=== PATIENT | female | born 1960 | race Caucasian/White ===

== ENCOUNTER → 2017-02-15 | Outpatient (CLI) | payer BC ==
[~2017-02-15] MED LIST: IBUP-1050 PO; OXYC-57 PO; PERFLUTREN LIPID MICROSPHERE (DEFINITY) IV ONE; PRLSR20 PO
--- NOTE | 2017-02-16 15:36 | DOBUTAMINE ECHO ---
*NOTICE TO RECEIVING REPUBLICAN AGENCY This information is strictly Confidential and protected under [place] law. [place] law prohibits you from making any further disclosure of this information unless further disclosure is expressly permitted by the written consent of the person to whom it pertains or is authorized by law. A general authorization for the release of medical or other information is not sufficient for this purpose. Hospital accepts no responsibility if the information is made available to any other person, INCLUDING THE PATIENT. Interpretation Summary * Name: JASON ORTIZ Study Date: 02/15/2017 10:25 AM BP: 141/79 mmHg * Patient Location: [facility] HR: 60 * : 1960 (M/d/yyyy) Gender: Female Height: 66 in * Age: 56 yrs Ethnicity: [place] Weight: 230 lb * Ordering Physician: Byron Jones * Referring Physician: Miguel Thompson * Performed By: Rosalba Wilson RCS * * Reason For Study: CP, LVH * BSA: 2.1 m2 * -- Conclusions -- * Nondiagnostic exercise stress echocardiogram, stress halted abruptly due to severely hypertensive response. * Nonischemic at 77% target heart rate. * Hypertensive BP response to exercise. * At rest, normal LV chamber size with mild concentric LVH. * Normal systolic function without regional wall motion abnormality, EF 60-65%. * No segmental left ventricular wall motion abnormalities are noted. * Grade I diastolic dysfunction. * No significant valvular pathology. Procedure Details * A contrast injection of Definity was performed to improve assessment of LV function. * Contrast was injected into an intravenous site in the left arm. * One vial of Definity ultrasound contrast was diluted in normal saline to a total volume of 10 ml. A total of '5' ml of solution was administered during imaging. * Lot # [id number] of Definity utilized for procedure. * Expiration date [id number]. * The attending nurse who injected the contrast agent was Mihaela Rubi RN. Left Ventricle * The left ventricle is normal in size. * There is mild concentric left ventricular hypertrophy. * Left ventricular systolic function is normal. * No segmental left ventricular wall motion abnormalities are noted. * Ejection Fraction = 60-65%. * Resting wall motion: Normal. Stress wall motion: Appropriate increase in Left ventricular systolic function and decrease in cavity size. No stress induced segmental wall motion abnormalities. Right Ventricle * The right ventricular cavity size is normal (basal dimension <4.2 cm in right ventricular apical 4-chamber view). * The right ventricular systolic function is normal as assessed by tricuspid annular plane systolic excursion (TAPSE) (normal >1.5 cm). Atria * The left atrial size is normal. * Right atrial size is normal. * No ASD detected; PFO is not assessed. Mitral Valve * The mitral valve is normal in structure and function. Tricuspid Valve * The tricuspid valve is normal in structure and function. Aortic Valve * The aortic valve is normal in structure and function. Pulmonic Valve * The pulmonary valve is not well seen, but the Doppler examination is normal without significant regurgitation or stenosis. Great Vessels * The aortic root is normal size. Pericardium * There is no pericardial effusion. Stress Parameters * Normal baseline electrocardiogram. * Stress ECG: No ST changes. No arrhythmias. * No arrhythmia were noted with stress. * The stress portion of this study was personally supervised by the undersigned interpreting physician. * Rest heart rate was '53' BPM. * Rest blood pressure was '141/79' * Maximum heart rate achieved was 127 bpm. * Maximum heart rate was 77 % of maximum age-predicted heart rate. * Maximum blood pressure was '228/99' * Total exercise time was '4:45' * Maximum exercise MET level achieved was '6.7' METS * Maximum treadmill speed was '2.5' miles per hour. * Maximum treadmill elevation was '12'% grade. * Exercise was terminated due to 'Exaggerated BP increase' Left Ventricular Diastolic Function * Grade I diastolic dysfunction, (abnormal relaxation pattern). MMode 2D Measurements and Calculations IVSd 1.2 cm LVIDd 3.8 cm LVIDs 2.1 cm LVPWd 1.2 cm IVS/LVPW 1.1 FS 44.1 % EDV(Teich) 61.6 ml ESV(Teich) 14.8 ml EF(Teich) 76.0 % EDV(cubed) 54.5 ml ESV(cubed) 9.5 ml EF(cubed) 82.5 % LV mass(C)d 150.6 grams LV mass(C)dI 71.0 grams/m\S\2 SV(Teich) 46.9 ml SI(Teich) 22.1 ml/m\S\2 SV(cubed) 45.0 ml SI(cubed) 21.2 ml/m\S\2 LVOT diam 2.0 cm LVOT area 3.0 cm\S\2 EDV(MOD-sp4) 88.9 ml ESV(MOD-sp4) 33.4 ml EF(MOD-sp4) 62.4 % EDV(MOD-sp2) 78.4 ml ESV(MOD-sp2) 25.4 ml EF(MOD-sp2) 67.6 % SV(MOD-sp4) 55.5 ml SI(MOD-sp4) 26.1 ml/m\S\2 SV(MOD-sp2) 52.9 ml SI(MOD-sp2) 24.9 ml/m\S\2 Doppler Measurements and Calculations MV E max talia 73.9 cm/sec MV A max talia 84.7 cm/sec MV E/A 0.87 MV dec time 0.23 sec Ao V2 max 135.9 cm/sec Ao max PG 7.4 mmHg Ao max PG (full) 1.9 mmHg BERNIE(V,A) 2.6 cm\S\2 BERNIE(V,D) 2.6 cm\S\2 LV V1 max PG 5.5 mmHg LV V1 max 117.3 cm/sec TR max talia 244.0 cm/sec
== END | disposition home or self-care (01) ==
LOC: C.CPL 09:57
PROVIDERS: ATTEND Specialist
DX: R07.9 Chest pain, unspecified (principal); I51.7 Cardiomegaly; I45.10 Unspecified right bundle-branch block

== ENCOUNTER → 2017-06-01 | Outpatient (CLI) | payer BC ==
[~2017-06-01] MED LIST changes: -PERFLUTREN LIPID MICROSPHERE (DEFINITY) IV ONE
--- NOTE | 2017-06-02 15:32 | MAMMOGRAPHY REPORT ---
BILATERAL DIGITAL SCREENING MAMMOGRAM TOMOSYNTHESIS WITH CAD: 06/01/2017 CLINICAL HISTORY: Routine screening. TECHNIQUE: Breast tomosynthesis in addition to standard 2D mammography was performed. Current study was also evaluated with a Computer Aided Detection (CAD) system. COMPARISON: Comparison is made to exams dated: 04/14/2016 mammogram, 04/08/2015 mammogram, 12/25/2012 m ammogram, 12/15/2011 mammogram, 10/14/2010 mammogram, and 10/15/2009 mammogram - [facility] enter. BREAST COMPOSITION: There are scattered areas of fibroglandular density in both breasts. FINDINGS: No suspicious masses, calcifications, or areas of architectural distortion are noted in ei ther breast. There has been no significant interval change compared to prior exams. IMPRESSION: ACR BI-RADS CATEGORY 1: NEGATIVE There is no mammographic evidence of malignancy. A 1 year screening mammogram is recommended. The pa tient will receive written notification of the results. Approximately 10% of breast cancers are not detected with mammography. A negative mammographic report should not delay biopsy if a clinically suggestive mass is present. Roxana Reinoso M.D. ah/:06/02/2017 07:42:41 Senior Producer: Vickey HART(Erik)(M), [facility] letter sent: Normal 1/2 BI-RADS Code: ACR BI-RADS Category 1: Negative
== END | disposition home or self-care (01) ==
LOC: C.MAMM 16:58
PROVIDERS: ATTEND Family Medicine
DX: Z12.31 Encounter for screening mammogram for malignant neoplasm of breast (principal)

== ENCOUNTER 2019-09-10 20:12 | Observation (INO) ==
[2019-09-10] MEDS ORDERED: ASPIRIN CHEW 324 MG PO STA (20:31)
[2019-09-10] MEDS ORDERED: NITROGLYCERIN 2% OINTMENT 30GM TUBE EXT STA (20:31)
--- NOTE | 2019-09-10 21:02 | XRay Report ---
XR chest 1V portable CLINICAL HISTORY: Chest Pain COMPARISON STUDY: Chest radiograph January 15, 2010. FINDINGS: Lung volumes are normal. Lungs are clear. There is no pneumothorax or pleural effusion. Car diac size is normal. Mediastinal contours are normal. There is no evidence for pulmonary edema. IMPRESSION: No acute cardiopulmonary findings. ACT 112: Negative or not required by law. Electronically signed by: Hermes Narayanan M.D. 09/10/2019 9:00 PM
[2019-09-10 21:22] LABS: Basophils # (auto) 0.03 K/uL (0-0.2); Basophils % (auto) 0.4 %; Eosinophils # (auto) 0.37 K/uL (0-0.5); Eosinophils % (auto) 4.4 %; Hematocrit (blood only) 40.8 % (37-47); Hemoglobin 13.6 g/dL (12.0-16.0); Immature Granulocytes # (auto) 0.02 K/uL (0.00-0.02); Immature Granulocytes % (auto) 0.2 %; Lymphocytes # (auto) 1.86 K/uL (1.2-3.4); Lymphocytes % (auto) 21.9 %; Mean Corpuscular Hemoglobin 29.5 pg (25-34); Mean Corpuscular Hgb Conc 33.3 g/dL (32-36); Mean Corpuscular Volume 88.5 fL (80-100); Mean Platelet Volume 11.7 fL (7.4-10.4); Monocytes # (auto) 0.73 K/uL (0.11-0.59); Monocytes % (auto) 8.6 %; Neutrophils # (auto) 5.49 K/uL (1.4-6.5); Neutrophils % (auto) 64.5 %; Platelet Count 214 K/uL (130-400); RDW Coefficient of Variation 13.4 % (11.5-14.5); RDW Standard Deviation 43.5 fL (36.4-46.3); Red Blood Count 4.61 M/uL (4.2-5.4)
[2019-09-10 21:37] LABS: Partial Thromboplastin Ratio 0.9; Partial Thromboplastin Time 24.5 Seconds (21.0-31.0); Prothrombin Time 9.9 Seconds (9.0-12.0)
[2019-09-10 22:16] LABS: Alanine Aminotransferase 25 U/L (12-78); Albumin Globulin Ratio 0.9 (0.9-2); Albumin Level 3.6 gm/dl (3.4-5.0); Alkaline Phosphatase 74 U/L (45-117); Aspartate Aminotransferase 18 U/L (15-37); BUN Creatinine Ratio 14.3 (10-20); Blood Urea Nitrogen 14 mg/dl (7-18); Calcium 9.4 mg/dl (8.5-10.1); Carbon Dioxide 29 mmol/L (21-32); Chloride 103 mmol/L (98-107); Creatinine Clr Calc Pharmacy 74.8 ml/min; Est GFR (African American) 72.8; Est GFR (Non-African American) 62.8; Globulin 4.1 gm/dl (2.5-4.0); Glucose 245 mg/dl (70-99); Potassium 3.2 mmol/L (3.5-5.1); Sodium 138 mmol/L (136-145); Total Protein 7.7 gm/dl (6.4-8.2); Troponin I < 0.015 ng/ml (0-0.045)
[2019-09-11] MEDS ORDERED: ONDANSETRON INJ 2 MG/ML 2 ML VIAL IV PRN (00:04)
[2019-09-11] MEDS ORDERED: NITROGLYCERIN SL 0.4 MG/TAB TAB SL PRN (00:04)
[2019-09-11] MEDS ORDERED: PANTOprazole 40 MG TAB PO PRN (00:04)
[2019-09-11] MEDS ORDERED: ALUMINUM/MAGNESIUM SUSP 30 ML UDC PO PRN (00:04)
[2019-09-11] MEDS ORDERED: ACETAMINOPHEN 325 MG TAB PO PRN (00:04)
--- NOTE | 2019-09-11 00:25 | Emergency Department Note ---
Entered by Angie Adams acting as a scribe for Darryn Kruger MD History of Present Illness General Chief complaint: Chest Pain Stated complaint: CHEST PAIN Time Seen by Provider: 09/10/19 20:25 Source: patient History of Present Illness Onset (ago): day(s) 1 Location: chest Pain Consistency: + intermittent Maximum Pain Intensity: 5 Quality: + other (heaviness) Associated symptoms: + other (felt warm); no shortness of breath The patient is a 58 year old F who presents to the Emergency Room with complaints of intermittent chest pain that started 1 day ago. The patient describes her chest pain as a heaviness. She denies that her chest pain radiates to her neck or arms. She states that her chest pain is random and is not made better or worse by anything. She notes that her chest pain started last night and returned today. She states that she felt warm this morning. She denies that she is experiencing shortness of breath. She states that she has a history of HTN and diabetes. She denies ever smoking. She notes that her mother had CHF. She denies a family history of CAD. Home Medications Home Medications Medication Instructions Recorded Confirmed Type hydrochlorothiazide 25 mg PO DAILY 09/10/19 09/10/19 History ibuprofen 400 mg PO DAILY PRN 09/10/19 09/10/19 History losartan 50 mg PO DAILY 09/10/19 09/10/19 History metformin 500 mg PO BID 09/10/19 09/10/19 History omeprazole 20 mg PO DAILY PRN 09/10/19 09/10/19 History potassium chloride 10 meq PO DAILY 09/10/19 09/10/19 History rosuvastatin 10 mg PO DAILY 09/10/19 09/10/19 History Allergies Allergy/AdvReac Type Severity Reaction Status Date / Time Sulfa (Sulfonamide Allergy Unknown BACTRIM Verified 08/22/09 02:44 Antibiotics) sulfamethoxazole Allergy Unknown Verified 08/22/09 02:44 trimethoprim Allergy Unknown Verified 08/22/09 02:44 lisinopril AdvReac Cough Unverified 09/10/19 22:02 Past Med/Surg History Medical History Diabetes HTN (hypertension) Family History Other CHF (congestive heart failure) Social History Preferred Language: Irish Communication Ability: Effective 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 and A total of 10 systems reviewed and were otherwise negative Physical Exam Vital Signs Vital Signs - 24 hr 09/10/19 20:13 09/10/19 21:14 09/10/19 21:25 Temperature 36.4 C L Temperature Source Oral Pulse Rate 74 Pulse Rate [Apical] 63 Respiratory Rate 16 18 Blood Pressure 154/80 H Blood Pressure [Left Arm] 143/63 H Blood Pressure Mean 104 Blood Pressure Mean [Left Arm] 89 Pulse Oximetry 97 98 95 Oxygen Delivery Method Room Air Room Air Room Air Sepsis Recent Fever Within 48 Hours No Sepsis New/Unexplained Change in Mental Status No Sepsis Action Taken by Nursing No Action Required Constitutional: Vital signs reviewed. Eyes: Pupils are equal round reactive to light. Conjunctiva are noninjected. ENT: Pharynx is clear without erythema or exudate. Mucous membranes are moist. Neck supple without meningeal signs. Respiratory: Clear to auscultation bilaterally. Breath sounds are equal bila terally. Cardiovascular: Regular rate and rhythm. No rubs or gallops. GI: Soft, nondistended and nontender. Bowel sounds are present. Musculoskeletal: No peripheral edema. No lower extremity tenderness. Integumentary: No cyanosis. Neurological: The patient is awake and alert. No focal deficits. Psychiatric: Normal affect. Course Course 2026: The patient was evaluated in room C5. A complete history and physical exam was performed. 2099: The patient states that his pain is improving. The nursing staff is trying to get an IV into the patient. 2226: The patient is longer experiencing chest pain. She states that she is agreeable to admission. 2232: I reviewed the patient's case with Dr. González Scanlon[facility] He will evaluate the patient for further management. Administered Medications Discontinued Medications Aspirin (Aspirin) 324 mg PO NOW STA Stop: 09/10/19 20:32 Last Admin: 09/10/19 20:53 Dose: 324 mg Documented by: [id number] Nitroglycerin (Nitro-Bid 2%) 0.5 inch EXT NOW STA Stop: 09/10/19 20:32 Last Admin: 09/10/19 20:52 Dose: 0.5 inch Documented by: [id number] Medical Decision Making Differential Diagnosis Differential diagnosis includes: unstable angina, NM, pleurisy, PNA, GERD Medical Records Attestation: I reviewed the patient's medical records. I did perform a limited focused review of portions of the patient's old chart on the electronic medical record. The patient has had no recent pertinent visits to this hospital. Home Medications Current Medication List: was personally reviewed by me Laboratory Data Attestation: I reviewed the patient's lab results. Result diagrams: 09/10/19 21:12 09/10/19 21:12 Lab Results 09/10/19 09/10/19 09/10/19 Range/Units 21:12 21:12 21:12 WBC 8.50 (4.8-10.8) K/uL RBC 4.61 (4.2-5.4) M/uL Hgb 13.6 (12.0-16.0) g/dL Hct 40.8 (37-47) % MCV 88.5 (80-100) fL MCH 29.5 (25-34) pg MCHC 33.3 (32-36) g/dL RDW Std Deviation 43.5 (36.4-46.3) fL RDW Coeff of Constantine 13.4 (11.5-14.5) % Plt Count 214 (130-400) K/uL MPV 11.7 H (7.4-10.4) fL Immature Gran % (Auto) 0.2 % Neut % (Auto) 64.5 % Lymph % (Auto) 21.9 % [place] % (Auto) 8.6 % Eos % (Auto) 4.4 % Baso % (Auto) 0.4 % Immature Gran # (Auto) 0.02 (0.00-0.02) K/uL Neut # (Auto) 5.49 (1.4-6.5) K/uL Lymph # (Auto) 1.86 (1.2-3.4) K/uL [place] # (Auto) 0.73 H (0.11-0.59) K/uL Eos # (Auto) 0.37 (0-0.5) K/uL Baso # (Auto) 0.03 (0-0.2) K/uL PT 9.9 (9.0-12.0) Seconds INR 1.0 (0.9-1.1) APTT 24.5 (21.0-31.0) Seconds PTT Ratio 0.9 Sodium 138 (136-145) mmol/L Potassium 3.2 L (3.5-5.1) mmol/L Chloride 103 (98-107) mmol/L Carbon Dioxide 29 (21-32) mmol/L Anion Gap 7.0 (3-11) BUN 14 (7-18) mg/dl Creatinine 0.99 (0.6-1.2) mg/dl Est Cr Clr Drug Dosing 74.8 ml/min Est GFR ( Amer) 72.8 Est GFR (Non-Af Amer) 62.8 BUN/Creatinine Ratio 14.3 (10-20) Glucose 245 H (70-99) mg/dl Calcium 9.4 (8.5-10.1) mg/dl Total Bilirubin 1.0 (0.2-1) mg/dl AST 18 (15-37) U/L ALT 25 (12-78) U/L Alkaline Phosphatase 74 (45-117) U/L Troponin I < 0.015 (0-0.045) ng/ml Total Protein 7.7 (6.4-8.2) gm/dl Albumin 3.6 (3.4-5.0) gm/dl Globulin 4.1 H (2.5-4.0) gm/dl Albumin/Globulin Ratio 0.9 (0.9-2) Specimen Hemolysis Imaging Data Radiologist's Impression: Radiology results as stated below per my review and the radiologist's interpretation: XR chest 1V portable CLINICAL HISTORY: Chest Pain COMPARISON STUDY: Chest radiograph January 15, 2010. FINDINGS: Lung volumes are normal. Lungs are clear. There is no pneumothorax or pleural effusion. Cardiac size is normal. Mediastinal contours are normal. There is no evidence for pulmonary edema. IMPRESSION: No acute cardiopulmonary findings. ACT 112: Negative or not required by law. Electronically signed by: Hermes Narayanan M.D. 09/10/2019 9:00 PM ECG Data Attestation: I personally reviewed and interpreted this ECG as follows: Indication: + chest pain Rate (beats per minute): 74 Rhythm: + normal sinus ECG ST segments: no ST elevation ECG Findings: + LVH; no PVCs Blood Pressure Blood Pressure Findings: Elevated blood pressure Blood Pressure Disposition: further management by hospitalist TED Narrative I did evaluate the patient as noted above. The patient is presenting with intermittent chest heaviness since yesterday. She is still having some heaviness at this time. I did treat her with aspirin and nitroglycerin paste. IV access was established. The patient was placed on a continuous monitoring specialist. Cardiac monitoring: Indication: Chest pain Rate and rhythm: Sinus rhythm with a rate in the 60s. I did order and personally review the patient's 12-lead EKG as described above. She has no signs of acute ischemia on her twelve-lead EKG. I did order and personally reviewed the images of the patient's chest x-ray as described above. Her x-ray does not demonstrate pneumonia or any acute cardiopulmonary process. I did order and review the patient's blood work as noted in the electronic medical record. She has mild hypokalemia. Otherwise electrolytes are unremarkable. CBC is unremarkable. Troponin is negative. I did reassess the patient. She is feeling better at this time and has no chest discomfort. I did discuss the test results with the patient. I did recommend hospitalization for repeat cardiac enzymes and further evaluation. I did discuss the case with hospitalist and manager of case management. Impression & Plan Left-sided chest pain, Hypokalemia Discharge Plan Visit Data *Final* Discharge Date/Time: 09/10/19 23:42 Chief Complaint: Chest Pain Stated Complaint: CHEST PAIN ED Provider: Darryn Kruger Discharge Problem: Left-sided chest pain, Hypokalemia Patient Disposition: Admitted As Inpatient Discharge Instructions Interventions: ED Discharge Assessment Last Done: 09/10/19 23:42 The scribe's documentation has been prepared under my direction and personally reviewed by me in its entirety. I confirm that the note above accurately reflects all work, treatment, procedures, and medical decision making performed by me.
--- NOTE | 2019-09-11 00:31 | History and Physical Report ---
DATE OF ADMISSION: 09/10/2019 CHIEF COMPLAINT: Chest pain. HISTORY OF PRESENT ILLNESS: This is a 58-year-old female with past medical history significant for hypertension, left ventricular hypertrophy, irritable bowel syndrome, GERD, obesity, uterine leiomyoma, complex endometrial hyperplasia, iron deficiency anemia, rheumatic fever, depression, who presents with chest pain. Patient states since yesterday she is having on and off chest pain. It comes and goes on its own, sometimes at rest. Today after coming from work, again chest pain came back in the retrosternal region radiating to the back, pressure-like feeling, moderate in severity, not associated with any nausea, vomiting, or shortness of breath or sweating or dizziness. In the ER, nitro relieved the pain. Currently, resting comfortably and hemodynamically stable. Currently, having a headache from the nitro. Denies any dizziness, no blurred vision, no earache, no runny nose, no sore throat, no difficulty swallowing. Once in a while she gets dry cough. No fever, no chills. Normal bowel and bladder movements. No hematuria or burning micturition. No black stools or blood in stools. No swelling in the legs, no rash, no easy bleeding or bruising. ALLERGIES: BACTRIM, LISINOPRIL, SULFA, ANTIBIOTICS. PAST MEDICAL HISTORY: As mentioned above. PAST SURGICAL HISTORY: Colonoscopy, hysteroscopy with biopsy and polypectomy, cholecystectomy, total abdominal hysterectomy with removal of tubes, upper endoscopy. MEDICATIONS: The patient is on lovastatin 10 mg p.o. daily, hydrochlorothiazide 25 mg p.o. daily, losartan 50 mg p.o. daily, potassium chloride 10 mEq p.o. daily, metformin 500 mg p.o. b.i.d., Prilosec 20 mg p.o. daily p.r.n. FAMILY HISTORY: Significant for mother had eye problems, [place], hypertension. Father had hypertension, CVA. SOCIAL HISTORY: . No smoking, no alcohol, no drug use. REVIEW OF SYSTEMS: As per HPI. Rest of review of systems negative. PHYSICAL EXAMINATION: GENERAL: The patient is of moderate build, not in acute distress. VITAL SIGNS: Temperature 36.4, pulse 63, respiratory rate 18, blood pressure 143/63, oxygen 95% on room air. HEENT: No pallor, no icterus. Pupils equal, round, and reactive to light. NECK: No JVD, no neck masses, no carotid bruits. CARDIOVASCULAR: S1, S2 heard, regular rate and rhythm, no murmur, no gallop. RESPIRATORY SYSTEM: Normal AP diameter. No accessory muscle use. No wheezing, no crackles. ABDOMEN: Soft, bowel sounds present, nontender. No distention. CENTRAL NERVOUS SYSTEM: Cranial nerves II-XII grossly intact. Nonfocal. EXTREMITIES: No edema, no erythema. LABORATORY DATA: WBC 8.5, hemoglobin 13.6, hematocrit 40.8, platelets 214. PT 9.9, INR 1, APTT 24.5. Sodium 138, potassium 3.2, chloride 103, bicarbonate 29, BUN 14, creatinine 0.9, serum glucose 245, calcium 9.4, total bilirubin 1, AST 18, ALT 25, alkaline phosphatase 74. Troponin I less than 0.015. IMAGING DATA: Chest x-ray, no acute cardiopulmonary findings. EKG: Normal sinus rhythm with a rate of 74. Voltage criteria for LVH, no significant change was found. ASSESSMENT AND PLAN: This is a 58-year-old female who presents with chest pain. 1. Chest pain, rule out acute coronary syndrome. Initial workup is negative, history of chest pain in the past status post stress test in 2017 which was unremarkable. Risk factor of hypertension, diabetes and hyperlipidemia and age and obesity. We will follow serial cardiac enzymes, echocardiogram, n.p.o. except meds, and consult cardiology in the a.m. for further recommendations. 2. History of hyperlipidemia. Continue statin. Follow fasting lipid profile. 3. History of hypertension. Continue losartan and hydrochlorothiazide. We will monitor the blood pressure. 4. History of diabetes. Hold metformin, placed on insulin sliding scale. Follow the blood sugars, follow the HbA1c levels. 5. Deep venous thrombosis prophylaxis, sequential compression devices. DISPOSITION: Observation in med/surg tele. Level 1 full code. Expect to discharge home and follow with her family doctor. [place]
[2019-09-11] MEDS ORDERED: GLUCOSE 10 TABS/TUBE PO PRN (00:45)
[2019-09-11] MEDS ORDERED: GLUCAGON FOR INJ 1 MG VIAL IM PRN (00:45)
[2019-09-11] MEDS ORDERED: CARBOHYDRATES FOR HYPOGLYCEMIA PO PRN (00:45)
[2019-09-11] MEDS ORDERED: GLUCOSE 40% GEL 15 GM TUBE PO PRN (00:45)
[2019-09-11] MEDS ORDERED: DEXTROSE 50% 50 ML SYRINGE IV PRN (00:45)
[2019-09-11] MEDS: INSULIN ASPART 100 UNITS/ML 3 ML PEN SC SCH ×3 (01:14→12:07)
[2019-09-11 05:38] LABS: Basophils # (auto) 0.03 K/uL (0-0.2); Basophils % (auto) 0.6 %; Eosinophils # (auto) 0.29 K/uL (0-0.5); Eosinophils % (auto) 5.4 %; Hematocrit (blood only) 37.6 % (37-47); Hemoglobin 12.2 g/dL (12.0-16.0); Immature Granulocytes # (auto) 0.01 K/uL (0.00-0.02); Immature Granulocytes % (auto) 0.2 %; Lymphocytes # (auto) 1.36 K/uL (1.2-3.4); Lymphocytes % (auto) 25.4 %; Mean Corpuscular Hemoglobin 28.6 pg (25-34); Mean Corpuscular Hgb Conc 32.4 g/dL (32-36); Mean Corpuscular Volume 88.3 fL (80-100); Mean Platelet Volume 11.7 fL (7.4-10.4); Monocytes # (auto) 0.59 K/uL (0.11-0.59); Neutrophils # (auto) 3.08 K/uL (1.4-6.5); Neutrophils % (auto) 57.4 %; Platelet Count 185 K/uL (130-400); RDW Coefficient of Variation 13.4 % (11.5-14.5); RDW Standard Deviation 42.8 fL (36.4-46.3); Red Blood Count 4.26 M/uL (4.2-5.4); White Blood Count 5.36 K/uL (4.8-10.8)
[2019-09-11 06:00] LABS: Estimated Average Glucose 192 mg/dl; Hemoglobin A1C 8.3 % (4.5-5.6)
[2019-09-11 06:18] LABS: BUN Creatinine Ratio 15.9 (10-20); Calcium 8.3 mg/dl (8.5-10.1); Creatinine Clr Calc Pharmacy 85.1 ml/min; Est GFR (African American) 85.1; Est GFR (Non-African American) 73.4; Magnesium 1.8 mg/dl (1.8-2.4); Potassium 3.3 mmol/L (3.5-5.1)
[2019-09-11] MEDS: hydroCHLOROthiazide 25 MG TAB PO SCH ×2 (07:51→07:52)
[2019-09-11] MEDS ORDERED: POTASSIUM CHLORIDE 10 MEQ TABCR PO SCH (09:00)
[2019-09-11] MEDS ORDERED: ROSUVASTATIN CALCIUM 10 MG TAB PO SCH (09:00)
[2019-09-11] MEDS ORDERED: ASPIRIN 81 MG ECTAB PO SCH (09:00)
[2019-09-11] MEDS ORDERED: LOSARTAN POTASSIUM 50 MG TAB PO SCH (09:00)
[2019-09-11] MEDS ORDERED: ATROPINE SULFATE 0.1 MG/ML 10ML SYR IV ONE (09:37)
[2019-09-11] MEDS ORDERED: METOPROLOL TARTRATE 1 MG/ML VIAL IV ONE (09:37)
[2019-09-11] MEDS ORDERED: DOBUTamine HCL 12.5 MG/ML 20 ML VIAL IV ONE (09:37)
[2019-09-11] MEDS ORDERED: PERFLUTREN LIPID MICROSPHERE (DEFINITY) IV ONE (10:26)
--- NOTE | 2019-09-11 10:39 | Cardiology Consultation ---
Date of Consultation September 11, 2019 Assessment & Plan (1) Left-sided chest pain: Musculoskeletal in nature with left fifth rib stuck in exhalation. Negative ischemic work-up including nonischemic dobutamine stress echocardiogram No further cardiac testing or intervention is necessary at this time. I did review stretching exercises with her to help return her rib to the proper position. Recommend follow-up with PCP and possible [facility] as an outpatient should her pain persist Okay to DC to home from a cardiac standpoint. Patient states that she understands the above explanation, agrees with treatment recommendations and will proceed as directed. Maintain current outpatient cardiac follow-up scheduled for February (2) HTN (hypertension): Controlled Continue current outpatient medical regimen (3) Right bundle branch block: Rate related Induced with dobutamine administration Resolved with lowering of heart rate with metoprolol Follow-up as an outpatient no further testing necessary at this time. History of Present Illness Reason for Consultation: Chest pain Requesting Physician: Dr. Scanlon Attending Physician: Kathryn Shahid MD History of Present Illness It was my pleasure to see Ms. Concepcion in consultation today September 11, 2019. She is a very pleasant 58-year-old woman who normally follows with Kary and Dr. Granados of her cardiology practice. She presented to [facility] emergency department on 09/10/2019 with complaints of chest discomfort. Patient states that she woke up in the a.m. of 223 with left-sided discomfort. She describes a dull achy sensation that radiated from her left sternal border over to her breast at approximately the fifth intercostal space. She states that it was tender to the touch and waxed and waned throughout the day. There is no worsening of the discomfort with exertion and she denied any associated shortness of breath, diaphoresis, nausea, lightheadedness, dizziness or syncope. She states that this pain was exactly similar to the pain she had in 2017 at which time she had a negative ischemic work-up. Her pain resolved after presenting to the emergency room and she did receive 1 sublingual nitroglycerin that seemed to resolve the pain. She had no recurrences overnight. Past medical history: 1. Hypertension 2. GERD 3. Diastolic dysfunction with normal LV systolic function 4. Dyslipidemia 5. Elevated BMI 6. Irritable bowel 7. Complex endometrial hyperplasia 8. History of musculoskeletal chest pain Allergies Allergy/AdvReac Type Severity Reaction Status Date / Time Sulfa (Sulfonamide Allergy Unknown BACTRIM Verified 08/22/09 02:44 Antibiotics) sulfamethoxazole Allergy Unknown Verified 08/22/09 02:44 trimethoprim Allergy Unknown Verified 08/22/09 02:44 lisinopril AdvReac Cough Unverified 09/10/19 22:02 Home Medications Home Medications Medication Instructions Recorded Confirmed Type hydrochlorothiazide 25 mg PO DAILY 09/10/19 09/10/19 History ibuprofen 400 mg PO DAILY PRN 09/10/19 09/10/19 History losartan 50 mg PO DAILY 09/10/19 09/10/19 History metformin 500 mg PO BID 09/10/19 09/10/19 History omeprazole 20 mg PO DAILY PRN 09/10/19 09/10/19 History potassium chloride 10 meq PO DAILY 09/10/19 09/10/19 History rosuvastatin 10 mg PO DAILY 09/10/19 09/10/19 History Patient History Medical History Diabetes HTN (hypertension) Family History Other CHF (congestive heart failure) Social History Preferred Language: Urdu Communication Ability: Effective Tin 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 No acute distress. HEENT: Normocephalic, atraumatic. Pupils equal, round and reactive to light and accommodation. Extraocular muscles are intact. Anicteric sclera. Moist mucous membranes. Neck: No JVD. No bruit. Cardiovascular: Regular. Positive S-4. Normal S-1 and S-2. No S-3. No murmurs or rubs. Pulmonary: Clear to auscultation B/L. No rales, rhonchi or wheezing Abdomen: Bowel sounds x 4, soft. No rebound, guarding or tenderness. No organomegaly. Extremities: No clubbing, cyanosis or edema. +2 pedal pulses bilaterally. Skin: Warm and dry. Musculoskeletal: Direct palpation of her left sternal border fifth intercostal space was able to reproduce her discomfort. Left fifth rib found to be stuck in exhalation Results & Data ([facility]) Vital Signs (Past 12 Hours) Vital Signs Temp Pulse Pulse Pulse Resp BP Pulse Ox 09/11/19 09:44 61 09/11/19 04:25 36.7 C 61 18 97/59 L 95 09/11/19 02:43 64 09/11/19 00:26 65 18 141/75 H 96 09/10/19 23:23 64 18 148/64 H 97 Laboratory Results Cardiac Enzymes 09/10/19 09/11/19 09/11/19 Range/Units 21:12 00:16 05:22 AST 18 (15-37) U/L Troponin I < 0.015 < 0.015 0.017 (0-0.045) ng/ml Coagulation 09/10/19 Range/Units 21:12 PT 9.9 (9.0-12.0) Seconds APTT 24.5 (21.0-31.0) Seconds CBC 09/10/19 09/11/19 Range/Units 21:12 05:22 WBC 8.50 5.36 (4.8-10.8) K/uL RBC 4.61 4.26 (4.2-5.4) M/uL Hgb 13.6 12.2 (12.0-16.0) g/dL Hct 40.8 37.6 (37-47) % Plt Count 214 185 (130-400) K/uL Neut # (Auto) 5.49 3.08 (1.4-6.5) K/uL Lymph # (Auto) 1.86 1.36 (1.2-3.4) K/uL [place] # (Auto) 0.73 H 0.59 (0.11-0.59) K/uL Eos # (Auto) 0.37 0.29 (0-0.5) K/uL Baso # (Auto) 0.03 0.03 (0-0.2) K/uL Comprehensive Metabolic Panel 09/10/19 09/11/19 Range/Units 21:12 05:22 Sodium 138 140 (136-145) mmol/L Potassium 3.2 L 3.3 L (3.5-5.1) mmol/L Chloride 103 108 H (98-107) mmol/L Carbon Dioxide 29 28 (21-32) mmol/L BUN 14 14 (7-18) mg/dl Creatinine 0.99 0.87 (0.6-1.2) mg/dl Glucose 245 H 263 H (70-99) mg/dl Calcium 9.4 8.3 L (8.5-10.1) mg/dl AST 18 (15-37) U/L ALT 25 (12-78) U/L Alkaline Phosphatase 74 (45-117) U/L Total Protein 7.7 (6.4-8.2) gm/dl Albumin 3.6 (3.4-5.0) gm/dl Intake and Output 09/10/19 09/11/19 09/11/19 22:59 06:59 14:59 Intake Total 200 / 200 Balance 200 / 200 Intake: Oral 200 / 200 Other: Weight 102.2 kg 102.2 kg Diagnostic Findings Dobutamine stress echocardiogram was negative for inducible ischemia. See separate report Medications Administered Current Inpatient Medications Acetaminophen (Tylenol) 650 mg PO Q4H PRN PRN Reason: Pain or Fever Stop: 10/11/19 00:03 Last Admin: 09/11/19 07:50 Dose: 650 mg Documented by: Al Hydrox/Mg Hydrox/Simethicone (Maalox) 15 ml PO Q4H PRN PRN Reason: Dyspepsia Stop: 10/11/19 00:03 Aspirin (Ecotrin Ectab) 81 mg PO [facility] Stop: 10/11/19 08:59 Last Admin: 09/11/19 07:51 Dose: 81 mg Documented by: Dextrose (Dextrose 50%) 25 - 50 ml IV UD PRN; Protocol PRN Reason: Hypoglycemia Protocol Stop: 10/11/19 00:44 Glucagon (Glucagen) 1 mg IM UD PRN; Protocol PRN Reason: Hypoglycemia Protocol Stop: 10/11/19 00:44 Glucose (Glucose 40%) 15 - 30 gm PO UD PRN; Protocol PRN Reason: Hypoglycemia Protocol Stop: 10/11/19 00:44 Glucose (Dex4 Glucose) 4 - 8 tabs PO UD PRN; Protocol PRN Reason: Hypoglycemia Protocol Stop: 10/11/19 00:44 Hydrochlorothiazide (Hctz) 25 mg PO DAILY [facility] Stop: 10/11/19 08:59 Last Admin: 09/11/19 07:52 Dose: 25 mg Documented by: Insulin Aspart (Novolog Flexpen) 0 units SC Q6 EVELYN Stop: 10/11/19 00:59 Last Admin: 09/11/19 05:32 Dose: 5 units Documented by: Losartan Potassium (Cozaar) 50 mg PO DAILY [facility] Stop: 10/11/19 08:59 Last Admin: 09/11/19 07:51 Dose: 50 mg Documented by: Miscellaneous (Carbohydrates For Hypoglycemia) 15 - 30 gm PO UD PRN PRN Reason: Hypoglycemia Treatment Stop: 10/11/19 00:44 Nitroglycerin (Nitrostat) 0.4 mg SL UD PRN PRN Reason: Chest Pain Stop: 10/11/19 00:03 Ondansetron HCl (Zofran) 4 mg IV Q6H PRN PRN Reason: Nausea Stop: 10/11/19 00:03 Pantoprazole Sodium (Protonix) 40 mg PO DAILY PRN PRN Reason: Gi Upset Stop: 10/11/19 00:03 Potassium Chloride (Klor-Con M10) 10 meq PO DAILY [facility] Stop: 10/11/19 08:59 Last Admin: 09/11/19 07:51 Dose: 10 meq Documented by: Rosuvastatin Calcium (Crestor) 10 mg PO DAILY [facility] Stop: 10/11/19 08:59 Last Admin: 09/11/19 07:51 Dose: 10 mg Documented by:
[2019-09-11] MEDS ORDERED: POTASSIUM CHLORIDE 20 MEQ TABCR PO STA (13:14)
--- NOTE | 2019-09-11 13:53 | Hospitalist Progress Note ---
Date of Service September 11, 2019 Assessment & Plan (1) Chest pain: admitted with sharp reproducible anterior chest wall pain atypical for angina appreciate input from cardiology stress test negative -no recurrence of chest pain with target heart rate no evidence of coronary artery disease reproducible chest wall pain at 4th /5th rib area possible costochondritis pt reports of having URI symptom last week benign pathology can take NSAID as needed for pain heat compression most cases the costochondritis -is viral origin , and spontaneous resolution - with supportive no further cardiac work up needed stable to be discharged home TYPE 2 DM : POORLY CONTROLLED : Hb a1c > 8 pt is on Metfomin 500 mg BID ordered to increase dose to 1000mg BID follow up with family physician for diabetic management pt is counselled for diet modification and healthy life style FULL CODE DISPOSITION : stable to be discharged home today Admission and Anticipated Discharge Date Admission Date: September 10, 2019 Subjective no complain of SOB cardiac stress test negative no PAUL has point tenderness on ant chest wall , improved no fever or chills possible chostochondritis stable to be discharged home today with oral NSAID Review of Systems Review of Systems: All systems reviewed & are unremarkable except as noted in HPI & below Constitutional: no fever, no chills and no fatigue Cardiovascular: + chest pain (pain on ant chest wall with palpation ); no dyspnea, no dyspnea at rest, no palpitations, no lightheadedness, no syncope and no edema Physical Exam Constitutional: WD/WN, vitals as above no acute distress Eyes: PERRL, conjunctivae normal, anicteric sclerae ENMT: external ear and nose normal, oropharynx normal Neck: trachea midline, no thyromegaly Respiratory: normal respiratory effort, lungs clear to auscultation Cardiovascular: RRR, no murmur, no edema Gastrointestinal (Abdomen): normal bowel sounds, soft, nontender, no hepatosplenomegaly Musculoskeletal: Head/Neck/Chest: + abnormal palpation of chest wall ( tenderness on palpation at approx 4th/5 th rib , ) Skin: no rashes, warm and dry Neurologic: PERRL, EOMI, accommodation nl, no face palsy, no dysarthria Psychiatric: A+Ox3, euthymic affect Results & Data ([facility]) Vital Signs (Past 12 Hours) Vital Signs Temp Pulse Pulse Pulse Resp BP Pulse Ox 09/11/19 11:53 36.4 C L 64 72 18 140/80 100 09/11/19 11:18 36.4 C L 72 18 140/80 100 09/11/19 09:44 61 09/11/19 04:25 36.7 C 61 18 97/59 L 95 09/11/19 02:43 64
--- NOTE | 2019-09-11 14:37 | Electrocardiogram Report ---
Test Reason : Blood Pressure : / mmHG Vent. Rate : 074 BPM Atrial Rate : 074 BPM P-R Int : 164 ms QRS Dur : 106 ms QT Int : 422 ms P-R-T Axes : 037 -39 012 degrees QTc Int : 468 ms Poor data quality, interpretation may be adversely affected Normal sinus rhythm Left axis deviation Voltage criteria for left ventricular hypertrophy Abnormal ECG When compared with ECG of 15-JAN-2010 14:28, No significant change was found Confirmed by Jerson Martin ([id number]) on 09/11/2019 2:37:32 PM Referred By: REFERRED SELF Confirmed By:Christian Martin
--- NOTE | 2019-09-12 10:50 | Discharge Summary ---
Date of Service September 12, 2019 Admission HPI Per Admitting Provider DICTATED BY: Lucas Scanlon MD DATE OF ADMISSION: 09/10/2019 CHIEF COMPLAINT: Chest pain. HISTORY OF PRESENT ILLNESS: This is a 58-year-old female with past medical history significant for hypertension, left ventricular hypertrophy, irritable bowel syndrome, GERD, obesity, uterine leiomyoma, complex endometrial hyperplasia, iron deficiency anemia, rheumatic fever, depression, who presents with chest pain. Patient states since yesterday she is having on and off chest pain. It comes and goes on its own, sometimes at rest. Today after coming from work, again chest pain came back in the retrosternal region radiating to the back, pressure-like feeling, moderate in severity, not associated with any nausea, vomiting, or shortness of breath or sweating or dizziness. In the ER, nitro relieved the pain. Currently, resting comfortably and hemodynamically stable. Currently, having a headache from the nitro. Denies any dizziness, no blurred vision, no earache, no runny nose, no sore throat, no difficulty swallowing. Once in a while she gets dry cough. No fever, no chills. Normal bowel and bladder movements. No hematuria or burning micturition. No black stools or blood in stools. No swelling in the legs, no rash, no easy bleeding or bruising. Principal Diagnosis CHEST PAIN , NON CARDIAC , POSSIBLE COSTOCHONDRITIS ( INFLAMMATION FOR THE RIB AND CARTILAGE ) Discharge Exam Constitutional WD/WN, vitals as above no acute distress Eyes PERRL, conjunctivae normal, anicteric sclerae ENMT external ear and nose normal, oropharynx normal Neck trachea midline, no thyromegaly Respiratory normal respiratory effort, lungs clear to auscultation Cardiovascular RRR, no murmur, no edema Gastrointestinal (Abdomen) normal bowel sounds, soft, nontender, no hepatosplenomegaly Musculoskeletal Head/Neck/Chest: + abnormal palpation of chest wall (tenderness on palpation at approx 4th/5 th rib , ) Skin no rashes, warm and dry Neurologic PERRL, EOMI, accommodation nl, no face palsy, no dysarthria Psychiatric A+Ox3, euthymic affect Discharge Data Allergies Allergy/AdvReac Type Severity Reaction Status Date / Time Sulfa (Sulfonamide Allergy Unknown BACTRIM Verified 08/22/09 02:44 Antibiotics) sulfamethoxazole Allergy Unknown Verified 08/22/09 02:44 trimethoprim Allergy Unknown Verified 08/22/09 02:44 lisinopril AdvReac Cough Unverified 09/10/19 22:02 Consultations 09/10/19 22:30 ED Decision to Admit Stat 09/11/19 00:04 Consult Case Management - Discharge Planning Routine 09/11/19 08:00 Consult Cardiology Routine Hospital Course (1) Chest pain: admitted with sharp reproducible anterior chest wall pain atypical for angina appreciate input from cardiology stress test negative -no recurrence of chest pain with target heart rate no evidence of coronary artery disease reproducible chest wall pain at 4th /5th rib area possible costochondritis pt reports of having URI symptom last week benign pathology can take NSAID as needed for pain heat compression most cases the costochondritis -is viral origin , and spontaneous resolution - with supportive no further cardiac work up needed stable to be discharged home TYPE 2 DM : POORLY CONTROLLED : Hb a1c > 8 pt is on Metfomin 500 mg BID ordered to increase dose to 1000mg BID follow up with family physician for diabetic management pt is counselled for diet modification and healthy life style FULL CODE DISPOSITION : stable to be discharged home today Total Time Total Time Spent Total Time Spent (In Minutes): approx 35 mins Total Time Includes: Examination of the Patient, Discharge Planning and Medication Reconciliation Discharge Plan Discharge Items Patient Disposition: Home - Self-Care Reason For Visit: CHEST PAIN Discharge Diagnosis: CHEST PAIN , NON CARDIAC , POSSIBLE COSTOCHONDRITIS ( INFLAMMATION FOR THE RIB AND CARTILAGE ) Activity: Resume your previous activity Non-emergency contact: Primary Care Provider Call non-emergency contact if: you have any medication questions Follow-up/Referrals: Miguel Thompson MD [Primary Care Provider] - 09/17/19 9:25 am (If you need to change this appointment, please call [phone].) Diet: Carb Consistent or DM2 and Heart Healthy Ambulatory Orders: Basic Metabolic Panel (Routine) Timeframe: [id number] Location: Determined by Patient Ordered By: Kathryn Vinson Attending Provider Instructions: YOUR METFORMIN DOSE INCREASED TO 1000 MG TWICE DAILY -YOUR BLOOD SUGAR HAS BEEN ELEVATED -SHOWING POOR CONTROL OF DIABETES HBa1C 8.3 WHICH GIVES LAST 3 MONTHS DAILY YOUR BLOOD SUGAR BEEN AROUND 196 THIS HIGH BLOOD SUGAR CAN CAUSE SERIOUS INJURY TO YOUR KIDNEY , HEART VESSELS , EYES , NERVES -LEADING TO KIDNEY FAILURE, NARROWING OF HEART VESSELS CAUSING HEART ATTACK , EARLY CATARACT , LOSS OF SENSATION IN HANDS AND LEGS DUE TO NERVE DAMAGE WILL NEED REFERRAL TO DIABETIC CLINIC FOR CLOSE FOLLOW UP AND DIABETIC MEDICATIONS ADJUSTMENTS REPEAT HBA1C IN 3 MONTHS Pending Studies at Discharge: Yes Studies:: LAB : BASIC METABOLIC PANEL ON 09/17/19 Stand-Alone Forms: My [facility], Smoking Cessation Medications and DC Order Prescriptions: New metformin 500 mg tablet extended release 24 hr 1,000 mg PO BID 30 Days Qty: 120 RF: 3 potassium chloride 20 mEq tablet extended release 20 meq PO DAILY Qty: 30 RF: 3 ibuprofen 600 mg tablet 600 mg PO Q8H PRN (Reason: pain) Qty: 10 RF: 0 Continued rosuvastatin 10 mg tablet 10 mg PO DAILY RF: 0 hydrochlorothiazide 25 mg tablet 25 mg PO DAILY RF: 0 losartan 50 mg tablet 50 mg PO DAILY RF: 0 omeprazole 20 mg Capsule,Delayed Release(Dr/Ec) 20 mg PO DAILY PRN (Reason: Gi Upset) RF: 0 ibuprofen 200 mg Tablet 400 mg PO DAILY PRN (Reason: Pain) RF: 0 Discontinued potassium chloride 10 mEq tablet extended release 10 meq PO DAILY RF: 0 Discharge Orders: Discharge Order (Routine); Ordered 09/11/19 Ordered By: Kathryn Banuelos/Other Patient Handouts: Diabetes Chcf Complications, Diabetes Healthy Meals, Understanding Carbohydrates, Diabetes Exercise Benefits, Diabetes Living Life, Diabetes Manage A1C Test Admission Data Admit Date/Time: 09/10/19 23:10 Attending Provider: Kathryn Shahid Admit Provider: Lucas Scanlon Primary Care Provider: Miguel Thompson Other Providers: Lucas Scanlon ; Wilber Whitaker ; Byron Jones ; Akshat Bray ; Darryn Granados ; Ramon Leo ; Jones Mcintosh ; Kary Bell ; My Barksdale ; Petey Kennedy Other DC Date/Time DO NOT enter until pt leaves facility: 09/11/19 14:03
== END 2019-09-11 14:03 | disposition home or self-care (01) ==
LOC: ED 20:12 → 2N 20:12